=== PATIENT | female | born 2000 | race American Indian/Alaskan Native ===

== ENCOUNTER 2020-08-12 08:40 | Inpatient (IN) | payer MEDICAID ==
[2020-08-12] MEDS ORDERED: ACETAMINOPHEN 325 MG TAB PO PRN (10:03)
[2020-08-12] MEDS ORDERED: ONDANSETRON 4 MG/2 ML INJ IV PRN (10:03)
[2020-08-12] MEDS ORDERED: ePHEDrine SULFATE 50 MG/1 ML INJ IV PRN (10:03)
[2020-08-12] MEDS ORDERED: fentaNYL 100 MCG/2 ML INJ IV PRN (10:03)
[2020-08-12] MEDS ORDERED: TERBUTALINE 1 MG/1 ML INJ SUB-Q PRN (10:03)
[2020-08-12] MEDS ORDERED: MINERAL OIL 30 ML ORAL LIQD PO PRN (10:03)
[2020-08-12] MEDS ORDERED: BUTORPHANOL 2 MG/1 ML INJ IV PRN ×2 (10:03)
[2020-08-12] MEDS ORDERED: NalbUPHINE 10 MG/1 ML INJ IV PRN (10:03)
[2020-08-12 10:44] LABS: Basophils % (Auto) 0.4 % (0.0-1.8); Eosinophils # (Auto) 0.2 K/mm3 (0.0-0.4); Eosinophils % (Auto) 3.9 % (0.0-4.3); Hemoglobin 10.8 gm/dl (10.1-14.3); Lymphocytes # (Auto) 1.2 K/mm3 (1.2-5.4); Mean Corpuscular HGB Conc 33 % (30-34); Mean Corpuscular Volume 72 fl (79-97); Monocytes # (Auto) 0.7 K/mm3 (0.0-0.8); Monocytes % (Auto) 12.1 % (0.0-7.3); Platelet Count 221 K/mm3 (140-440)
[2020-08-12] MEDS ORDERED: OXYTOCIN DRIP 30 UNITS/500 ML BAG IV SCH (11:00)
[2020-08-12] MEDS ORDERED: LIDOCAINE (2%) 20 MG/1 ML VIAL 20 ML MDV INFILTRATI ONE (11:03)
[2020-08-12] MEDS ORDERED: DINOPROSTONE 10 MG VAG SUPP VG ONE (12:30)
[2020-08-12] MEDS ORDERED: ZOLPIDEM 5 MG TAB PO PRN (19:33)
--- NOTE | 2020-08-12 20:38 | History and Physical Report ---
History of Present Illness Date of examination: 08/12/20 Date of admission: 08/12/20 08:40 Chief complaint: I'm here for induction History of present illness: Pt is a 19 year old who presents at 41 weeks gestation for postdates induction. Pt has had an relatively uncomplicated course with the exception of getting Covid at 35 weeks gestation. Pt had no long lasting issues. GBS negative. Past History Past Medical History: no pertinent history Past Surgical History: no surgical history Family/Genetic History: none Social history: no significant social history. denies: single - Obstetrical History Expected Date of Delivery: 08/05/20 Actual Gestation: 41 Week(s) 1 Day(s) : 1 Number of Living Children: 0 Medications and Allergies Allergies Allergy/AdvReac Type Severity Reaction Status Date / Time No Known Allergies Allergy Unverified 08/12/20 10:02 Home Medications Medication Instructions Recorded Confirmed Last Taken Type No Known Home Medications [No 08/13/20 08/13/20 Unknown History Reported Home Medications] Active Meds: Active Medications Acetaminophen (Acetaminophen 325 Mg Tab) 650 mg PO Q4H PRN PRN Reason: Pain, Mild (1-3) Butorphanol Tartrate (Butorphanol 2 Mg/1 Ml Inj) 1 mg IV Q2H PRN PRN Reason: Pain, Moderate(4-6) LABOR PAIN Butorphanol Tartrate (Butorphanol 2 Mg/1 Ml Inj) 2 mg IV Q2H PRN PRN Reason: Pain , Severe (7-10) Ephedrine Sulfate (Ephedrine Sulfate 50 Mg/1 Ml Inj) 10 mg IV Q2M PRN PRN Reason: Hypotension Fentanyl (Fentanyl 100 Mcg/2 Ml Inj) 100 mcg IV Q2H PRN PRN Reason: Pain,Severe (7-10) LABOR PAIN Oxytocin/Sodium Chloride (Pitocin/Ns 30 Unit/500ml) 30 units in 500 mls @ 2 mls/hr IV TITR OREN; Protocol Lactated Ringer's (Lactated Ringers) 1,000 mls @ 125 mls/hr IV DIRECT OREN Oxytocin/Sodium Chloride (Pitocin/Ns 30 Unit/500ml) 30 units in 500 mls @ 40 mls/hr IV TITR OREN; Protocol Mineral Oil (Mineral Oil 30 Ml Oral Liqd) 30 ml PO QHS PRN PRN Reason: Constipation Nalbuphine HCl (Nalbuphine 10 Mg/1 Ml Inj) 10 mg IV Q2H PRN PRN Reason: Pain, Moderate (4-6) Ondansetron HCl (Ondansetron 4 Mg/2 Ml Inj) 4 mg IV Q8H PRN PRN Reason: Nausea And Vomiting Terbutaline Sulfate (Terbutaline 1 Mg/1 Ml Inj) 0.25 mg SUB-Q ONCE PRN PRN Reason: Hyperstimulation/Hypertonicity Zolpidem Tartrate (Zolpidem 5 Mg Tab) 5 mg PO QHS PRN PRN Reason: Sleep Last Admin: 08/12/20 19:44 Dose: 5 mg Documented by: Review of Systems All systems: negative Constitutional: weight gain Eyes: deferred Gastrointestinal: abdominal pain Genitourinary: deferred - Vital Signs Vital signs: Vital Signs Pulse Pulse Ox 104 H 100 08/12/20 09:39 08/12/20 09:39 Temp Pulse Resp BP Pulse Ox 98.4 F 82 12 129/79 99 08/12/20 19:12 08/12/20 19:43 08/12/20 19:12 08/12/20 19:15 08/12/20 19:43 - Physical Exam Breasts: Positive: deferred Cardiovascular: Regular rate, Normal S1, Normal S2 Lungs: Positive: Clear to auscultation, Normal air movement Abdomen: Positive: normal appearance, soft, normal bowel sounds. Negative: distention, tenderness Genitourinary (Female): Positive: normal external genitalia, normal perenium Vulva: both: normal Vagina: Positive: normal moisture. Negative: discharge Cervix: Negative: lesion, discharge Uterus: Positive: normal size, normal contour Adnexa: both: normal Anus/Rectum: Positive: normal perianal skin, heme negative. Negative: rectal mass, hemorrhoids Extremities: Deep Tendon Reflex Grade: Normal +2 - Obstetrical FHR: auscultation normal Cervical Dilatation: 0 Cervical Effacement Percentage: 50 station: -2 Uterine Contraction Pattern: Absent Results Result Diagrams: 08/12/20 10:09 Abnormal lab results 08/12/20 Range/Units 10:09 MCV 72 L (79-97) fl MCH 23 L (28-32) pg [place] % (Auto) 12.1 H (0.0-7.3) % All other labs normal. Assessment and Plan IUP at 41 weeks here for induction of labor. Admit and treat with cervidil. pt may epidural. Anticipate .
[2020-08-13] MEDS: OXYTOCIN DRIP 30 UNITS/500 ML BAG IV SCH ×2 (01:52→20:06)
[2020-08-13] MEDS ORDERED: miSOPROStol 25 MCG TAB VG SCH (08:00)
[2020-08-13] MEDS: LACTATED RINGERS 1,000 ML IV SCH ×2 (11:10→18:12)
--- NOTE | 2020-08-13 17:28 | Anesthesia Consultation ---
Anesthesia Consult and Med Hx Date of service: 08/13/20 - Airway Anesthetic Teeth Evaluation: Good ROM Head & Neck: Adequate Mental/Hyoid Distance: Adequate Mallampati Class: Class II Intubation Access Assessment: Probably Good - Pulmonary Exam CTA: Yes - Cardiac Exam Cardiac Exam: RRR - Pre-Operative Health Status ASA Pre-Surgery Classification: ASA2 Proposed Anesthetic Plan: Epidural - Pulmonary Hx Smoking: No Hx Asthma: No COPD: No Hx Pneumonia: No Hx Sleep Apnea: No - Cardiovascular System Hx Hypertension: No Hx Heart Attack/AMI: No Hx Angina: No - Central Nervous System Hx Seizures: No Hx Psychiatric Problems: No - Gastrointestinal Hx Gastroesophageal Reflux Disease: No - Endocrine Hx Renal Disease: No Hx End Stage Renal Disease: No Hx Insulin Dependent Diabetes: No Hx Non-Insulin Dependent Diabetes: No Hx Hypothyroidism: No Hx Hyperthyroidism: No - Hematic Hx Anemia: No Hx Sickle Cell Disease: Yes (trait) - Other Systems Hx Alcohol Use: No
--- NOTE | 2020-08-13 17:29 | Progress Note ---
Labor Epidural - Labor Epidural Start Time: 17:10 Stop Time: 17:28 Performed by:: SARA ARIAS Procedure: Patient is requesting epidural for labor and pain. H&P, labs were reviewed. Patient IDed, H&P reviewed, all questions and concerns were answered, and consent was signed. Timeout was performed at bedside. Patient in sitting position. Sterile prep and drape was performed. 3ml of 1% lidocaine skin wheal at L[3]- L [4]. 18-gauge Tuohy epidural needle was advanced to loss of resistance with air technique cm. Negative CSF negative blood. Epidural catheter advanced to [12] centimeters. [negative] Aspiration [negative] test dose. Sterile dressing applied. Patient tolerated procedure.
[2020-08-13] MEDS ORDERED: NalbUPHINE 10 MG/1 ML INJ IV PRN (17:30)
[2020-08-13] MEDS ORDERED: NALOXONE 2 MG/2 ML INJ IV PRN (17:30)
[2020-08-13] MEDS ORDERED: diphenhydrAMINE 50 MG/ML VIAL IV PRN (17:30)
[2020-08-13] MEDS ORDERED: fentaNYL-BUPIV 2 MCG/ML-0.125% 200 MCG/100 ML BAG EPIDURAL SCH (18:00)
--- NOTE | 2020-08-13 20:01 | Progress Note ---
Assessment and Plan IUP at 41 weeks now in labor and with SROM. Pt comfortable with epidural. Will begin pitocin to increase contraction activity. Anticipate . Subjective - Subjective Date of service: 08/13/20 Interval history: Pt is a 19 year old who presents at 41 weeks gestation for postdates induction. Pt has had an relatively uncomplicated course with the exception of getting Covid at 35 weeks gestation. Pt had no long lasting issues. GBS negative. Patient reports: movement normal, other (leakage of fluid) Objective - Vital Signs Vital Signs: Vital Signs - 12hr 08/13/20 08/13/20 08/13/20 12:50 12:51 15:24 Temperature 98.7 F Pulse Rate 85 85 Respiratory 18 Rate Blood Pressure 132/75 132/74 Blood Pressure [Right] O2 Sat by Pulse 94 Oximetry 08/13/20 08/13/20 08/13/20 15:25 17:05 17:06 Temperature 98.3 F Pulse Rate 89 87 Respiratory 20 Rate Blood Pressure 137/79 Blood Pressure [Right] O2 Sat by Pulse 72 L 77 L Oximetry 08/13/20 08/13/20 08/13/20 17:07 17:09 17:11 Temperature Pulse Rate 79 96 H 98 H Respiratory Rate Blood Pressure 135/72 133/72 120/65 Blood Pressure [Right] O2 Sat by Pulse 100 Oximetry 08/13/20 08/13/20 08/13/20 17:13 17:15 17:16 Temperature Pulse Rate 89 97 H 95 H Respiratory Rate Blood Pressure 124/64 120/60 Blood Pressure [Right] O2 Sat by Pulse 100 Oximetry 08/13/20 08/13/20 08/13/20 17:17 17:19 17:20 Temperature Pulse Rate 98 H 102 H 98 H Respiratory Rate Blood Pressure 127/68 127/70 Blood Pressure [Right] O2 Sat by Pulse 78 L Oximetry 08/13/20 08/13/20 08/13/20 17:21 17:23 17:25 Temperature Pulse Rate 97 H 98 H 93 H Respiratory Rate Blood Pressure 123/68 121/66 131/70 Blood Pressure [Right] O2 Sat by Pulse 73 L Oximetry 08/13/20 08/13/20 08/13/20 17:26 17:27 17:29 Temperature Pulse Rate 94 H 118 H 90 Respiratory Rate Blood Pressure 128/78 129/84 Blood Pressure [Right] O2 Sat by Pulse 100 Oximetry 08/13/20 08/13/20 08/13/20 17:31 17:33 17:35 Temperature Pulse Rate 77 83 79 Respiratory Rate Blood Pressure 129/72 125/73 138/76 Blood Pressure [Right] O2 Sat by Pulse 100 Oximetry 08/13/20 08/13/20 08/13/20 17:36 17:37 17:39 Temperature Pulse Rate 89 97 H 82 Respiratory Rate Blood Pressure 137/72 131/69 Blood Pressure [Right] O2 Sat by Pulse 100 Oximetry 08/13/20 08/13/20 08/13/20 17:41 17:43 17:45 Temperature Pulse Rate 82 67 72 Respiratory Rate Blood Pressure 126/70 132/69 124/66 Blood Pressure [Right] O2 Sat by Pulse 99 Oximetry 08/13/20 08/13/20 08/13/20 17:46 17:47 17:50 Temperature Pulse Rate 80 104 H 88 Respiratory Rate Blood Pressure 115/60 120/65 Blood Pressure [Right] O2 Sat by Pulse 99 Oximetry 08/13/20 08/13/20 08/13/20 17:51 17:53 17:55 Temperature Pulse Rate 80 91 H 75 Respiratory Rate Blood Pressure 119/63 118/64 120/59 Blood Pressure [Right] O2 Sat by Pulse 99 Oximetry 08/13/20 08/13/20 08/13/20 17:56 17:57 17:59 Temperature Pulse Rate 76 90 83 Respiratory Rate Blood Pressure 117/62 116/64 Blood Pressure [Right] O2 Sat by Pulse 100 Oximetry 08/13/20 08/13/20 08/13/20 18:01 18:03 18:05 Temperature Pulse Rate 102 H 85 90 Respiratory Rate Blood Pressure 115/65 115/61 112/56 Blood Pressure [Right] O2 Sat by Pulse 99 Oximetry 08/13/20 08/13/20 08/13/20 18:06 18:07 18:09 Temperature Pulse Rate 101 H 75 102 H Respiratory Rate Blood Pressure 122/71 105/55 Blood Pressure [Right] O2 Sat by Pulse 98 Oximetry 08/13/20 08/13/20 08/13/20 18:11 18:13 18:15 Temperature Pulse Rate 102 H 96 H 110 H Respiratory Rate Blood Pressure 109/55 120/72 106/55 Blood Pressure [Right] O2 Sat by Pulse 100 Oximetry 08/13/20 08/13/20 08/13/20 18:16 18:18 18:19 Temperature Pulse Rate 111 H 98 H 115 H Respiratory Rate Blood Pressure 120/57 108/54 Blood Pressure [Right] O2 Sat by Pulse 99 Oximetry 08/13/20 08/13/20 08/13/20 18:21 18:23 18:25 Temperature Pulse Rate 66 98 H 85 Respiratory Rate Blood Pressure 122/64 111/60 117/58 Blood Pressure [Right] O2 Sat by Pulse 98 Oximetry 08/13/20 08/13/20 08/13/20 18:26 18:27 18:29 Temperature Pulse Rate 87 102 H 70 Respiratory Rate Blood Pressure 126/71 123/64 Blood Pressure [Right] O2 Sat by Pulse 98 Oximetry 08/13/20 08/13/20 08/13/20 18:31 18:32 18:33 Temperature Pulse Rate 101 H 109 H 111 H Respiratory Rate Blood Pressure 109/53 109/59 Blood Pressure [Right] O2 Sat by Pulse 98 Oximetry 08/13/20 08/13/20 08/13/20 18:35 18:36 18:37 Temperature Pulse Rate 72 94 H 100 H Respiratory Rate Blood Pressure 120/66 110/63 Blood Pressure [Right] O2 Sat by Pulse 99 Oximetry 08/13/20 08/13/20 08/13/20 18:40 18:41 18:43 Temperature Pulse Rate 77 101 H 83 Respiratory Rate Blood Pressure 121/60 113/57 129/74 Blood Pressure [Right] O2 Sat by Pulse 100 Oximetry 08/13/20 08/13/20 08/13/20 18:45 18:46 18:47 Temperature Pulse Rate 96 H 105 H 111 H Respiratory Rate Blood Pressure 115/61 113/59 Blood Pressure [Right] O2 Sat by Pulse 100 Oximetry 08/13/20 08/13/20 08/13/20 18:49 18:51 18:54 Temperature Pulse Rate 81 129 H 62 Respiratory Rate Blood Pressure 115/62 108/55 128/60 Blood Pressure [Right] O2 Sat by Pulse 98 Oximetry 08/13/20 08/13/20 08/13/20 18:55 18:56 19:00 Temperature Pulse Rate 108 H 110 H 74 Respiratory Rate Blood Pressure 104/55 105/52 Blood Pressure [Right] O2 Sat by Pulse 98 Oximetry 08/13/20 08/13/20 08/13/20 19:01 19:06 19:11 Temperature Pulse Rate 76 84 81 Respiratory Rate Blood Pressure 101/56 Blood Pressure [Right] O2 Sat by Pulse 100 99 98 Oximetry 08/13/20 08/13/20 08/13/20 19:15 19:16 19:19 Temperature 97.9 F Pulse Rate 68 82 74 Respiratory 18 Rate Blood Pressure 95/50 Blood Pressure 109/56 [Right] O2 Sat by Pulse 98 100 Oximetry 08/13/20 08/13/20 08/13/20 19:21 19:26 19:29 Temperature Pulse Rate 81 86 68 Respiratory Rate Blood Pressure 109/56 Blood Pressure [Right] O2 Sat by Pulse 99 100 Oximetry 08/13/20 08/13/20 08/13/20 19:31 19:36 19:40 Temperature Pulse Rate 69 73 72 Respiratory Rate Blood Pressure 99/57 Blood Pressure [Right] O2 Sat by Pulse 100 99 Oximetry 08/13/20 08/13/20 08/13/20 19:41 19:46 19:49 Temperature Pulse Rate 71 69 75 Respiratory Rate Blood Pressure 109/57 Blood Pressure [Right] O2 Sat by Pulse 99 99 Oximetry 08/13/20 08/13/20 19:51 19:56 Temperature Pulse Rate 69 75 Respiratory Rate Blood Pressure Blood Pressure [Right] O2 Sat by Pulse 100 100 Oximetry - Exam Breasts: deferred Cardiovascular: Regular rate, Normal S1, Normal S2 Abdomen: Present: normal appearance, soft, normal bowel sounds Cervical Dilatation: 4 Cervical Effacement Percentage: 80 station: -1 Uterine Contraction Frequency (min): 3-5 Uterine Contraction Pattern: Regular Uterine Tone Measurement Phase: Contraction Uterine Contraction Intensity: Strong/Firm - Labs Labs: Abnormal Labs 08/12/20 08/13/20 10:09 08:15 MCV 72 L MCH 23 L [place] % (Auto) 12.1 H Membranes Rupture Positive A Laboratory Results - last 24 hr 08/13/20 08:15 Membranes Rupture Positive A
[2020-08-14] MEDS ORDERED: OXYTOCIN 10 UNIT/1 ML INJ ONE (02:07)
[2020-08-14] MEDS ORDERED: LIDOCAINE (2%) 20 MG/1 ML VIAL 20 ML MDV INFILTRATI ONE (02:25)
--- NOTE | 2020-08-14 02:52 | Procedure Note ---
OB Delivery Note - Delivery Date of Delivery: 08/14/20 Surgeon: HILDA HARLEY Estimated blood loss: 200cc - Vaginal Delivery presentation: vertex Delivery position: OA Intrapartum events: none Delivery induction: none Delivery monitor: external FHT, external uterine Route of delivery: Delivery placenta: spontaneous Delivery cord: 3 umbilical vessels Episiotomy: none Delivery laceration: none Anesthesia: epidural Delivery comments: Viable male delivered over intact perineum with no nuchal cord Apgars 8 and 9. Weight 7 pounds 5 ounces 3301 g. had spontaneous cry was placed maternal abdomen. Cord was clamped and cut when finished pulsating. Placenta was then delivered spontaneously and intact after cord blood was obtained. There were no lacerations noted, no repair. There was excellent hemostasis at end of the procedure. Patient tolerated procedure well. - Infant A at 1 minute: 8 at 5 minutes: 9 Infant Gender: Male
[2020-08-14] MEDS ORDERED: diphenhydrAMINE 25 MG CAP PO PRN (03:39)
[2020-08-14] MEDS ORDERED: PROMETHAZINE 25 MG TAB PO PRN (03:39)
[2020-08-14] MEDS ORDERED: WITCH HAZEL/ GLYCERIN PAD TP PRN (03:39)
[2020-08-14] MEDS ORDERED: LANOLIN/ZINC/DIMETHICONE (LANSINOH) 7 GM TP PRN (03:39)
[2020-08-14] MEDS ORDERED: HYDROcodone/ACETAMINOPHEN 5-325 MG TAB PO PRN (03:39)
[2020-08-14] MEDS ORDERED: PROMETHAZINE 25 MG RECT SUPP PR PRN (03:39)
[2020-08-14] MEDS ORDERED: MAGNESIUM HYDROXIDE (MOM) ORAL LIQD UDC PO PRN (03:39)
[2020-08-14] MEDS ORDERED: ONDANSETRON 4 MG/2 ML INJ IV PRN (03:39)
[2020-08-14] MEDS: IBUPROFEN 600 MG TAB PO SCH ×3 (05:35→18:50)
--- NOTE | 2020-08-14 07:49 | Post Anesthesia Evaluation ---
- Post Anesthesia Evaluation Patient Participated: Yes Airway Patent: Yes Stable Respiratory Function: Yes Nausea/Vomiting: No Temp > 96.8F: Yes Pain Manageable: Yes Adequeate Hydration: Yes Anesthesia Complications: No Block Receding Appropriately: Yes Patient on Ventilator: No
[2020-08-14] MEDS: PRENATAL VIT27-FE FUMARATE-FOLIC ACID VIT TAB PO SCH (13:14)
[2020-08-14] MEDS: DOCUSATE SODIUM 100 MG CAP PO SCH ×2 (13:14→21:49)
[2020-08-14 14:57] LABS: Hematocrit 32.5 % (30.3-42.9); Hemoglobin 10.6 gm/dl (10.1-14.3)
[2020-08-15] MEDS: IBUPROFEN 600 MG TAB PO SCH ×3 (00:02→11:18)
--- NOTE | 2020-08-15 05:55 | Progress Note ---
Assessment and Plan PPD 1 s/p . Doing well. Plan for discharge on today. Subjective - Subjective Date of service: 08/15/20 Interval history: Pt is a 19 year old who presents at 41 weeks gestation for postdates induction. Pt has had an relatively uncomplicated course with the exception of getting Covid at 35 weeks gestation. Pt had no long lasting issues. GBS negative. Patient reports: appetite normal, voiding normally, pain well controlled, ambulating normally : doing well Objective - Vital Signs Latest vital signs: Vital Signs Temp Pulse Resp BP BP Pulse Ox 08/14/20 23:32 98.5 F 104 H 20 133/80 100 08/14/20 16:15 98.6 F 95 H 18 115/66 100 08/14/20 08:27 98.2 F 84 18 126/71 100 Intake and Output 08/14/20 08/14/20 08/15/20 14:59 22:59 06:59 Intake Total 240 Output Total 200 Balance 240 -200 Intake: Oral 240 Output: Urine 200 Indwelling Catheter 200 Other: Total, Intake Amount 240 Total, Output Amount 200 - Exam Breasts: Present: deferred Lungs: Present: Clear to auscultation, Normal air movement Abdomen: Present: normal appearance, soft, normal bowel sounds Uterus: Present: normal, firm Extremities: Present: normal
--- NOTE | 2020-08-15 05:57 | Discharge Summary ---
Providers - Providers Date of Admission: 08/12/20 08:40 Date of discharge: 08/14/20 Attending physician: HILDA HARLEY Primary care physician: HILDA HARLEY Hospitalization Reason for admission: induction of labor (post dates) Delivery: Episiotomy: none Laceration: none Other procedures: none complications: none Discharge diagnosis: IUP at term delivered [place] baby: male Condition at discharge: Good Disposition: DC-01 TO HOME OR SELFCARE Plan - Discharge Medications Prescriptions: Docusate Sodium [Colace] 100 mg PO BID #60 capsule Ibuprofen [Motrin] 800 mg PO Q8HR PRN #40 tablet PRN Reason: Pain, Mild (1-3) - Provider Discharge Summary Activity: routine, no sex for 6 weeks, no heavy lifting 4 weeks, no strenuous exercise Diet: routine Instructions: routine Additional instructions: [] Smoking cessation referral if applicable(refer to patient education folder for contact #) [] Refer to [facility]'s [facility] Booklet Call your doctor immediately for: * Fever > 100.5 * Heavy vaginal bleeding ( >1 pad per hour) * Severe persistent headache * Shortness of breath * Reddened, hot, painful area to leg or breast * Drainage or odor from incision. * Keep incision clean and dry at all times and follow doctor's instructions regarding bathing/showering - Follow up plan Follow up: HILDA HARLEY MD [Primary Care Provider] - 6 Weeks
[2020-08-15] MEDS: DOCUSATE SODIUM 100 MG CAP PO SCH (09:28)
[2020-08-15] MEDS: PRENATAL VIT27-FE FUMARATE-FOLIC ACID VIT TAB PO SCH (09:28)
[2020-08-15 13:08] VITALS: BP 139/74
== END 2020-08-15 14:25 | disposition home or self-care (01) | DRG 775 ==
LOC: LD 08:40 → OB 08-14 04:25
PROVIDERS: ADMIT Obstetrics & Gynecology; ATTEND Obstetrics & Gynecology
PROC: 3E0R3BZ Introduction of Anesthetic Agent into Spinal Canal, Percutaneous Approach (ICD-10-PCS; 2020-08-13)
PROC: 00HU33Z Insertion of Infusion Device into Spinal Canal, Percutaneous Approach (ICD-10-PCS; 2020-08-13)
PROC: 10E0XZZ Delivery of Products of Conception, External Approach (ICD-10-PCS; principal; 2020-08-14)
DX: O48.0 Post-term pregnancy (principal); O99.02 Anemia complicating childbirth; Z3A.41 41 weeks gestation of pregnancy; Z37.0 Single live birth; Z20.822 Contact with and (suspected) exposure to COVID-19; D57.3 Sickle-cell trait
CPT/HCPCS: 36415; 59200; 84112; 85014; 85018; 85025; 86592; 86850; 86900; 86901; G0378; J2590; J7120; U0003